=== PATIENT | female | born 1970 | race Caucasian/White ===

== ENCOUNTER → 2016-10-23 | Outpatient (CLI) | payer BC ==
[~2016-10-23] MED LIST: ATV5 PO; BUPR-79 PO; DEXL30CA5 PO; HYDR-3419 PO
--- NOTE | 2016-10-23 15:48 | MAMMOGRAPHY REPORT ---
BILATERAL DIGITAL SCREENING MAMMOGRAM TOMOSYNTHESIS WITH CAD: 10/23/2016 CLINICAL HISTORY: Routine screening. Patient has no complaints. TECHNIQUE: Breast tomosynthesis in addition to standard 2D mammography was performed. Current study was also evaluated with a Computer Aided Detection (CAD) system. COMPARISON: Comparison is made to exams dated: 10/08/2015 mammogram, 07/19/2013 mammogram, 4 mammogram, 05/03/2012 mammogram, and 04/10/2011 mammogram - [facility]. BREAST COMPOSITION: The tissue of both breasts is extremely dense, which lowers the sensitivity of mammography. FINDINGS: No suspicious masses, calcifications, or areas of architectural distortion are noted in e ither breast. There has been no significant interval change compared to prior exams. A biopsy marke r clip is again noted in the left medial breast. IMPRESSION: ACR BI-RADS CATEGORY 2: BENIGN There is no mammographic evidence of malignancy. A 1 year screening mammogram is recommended. The p atient will receive written notification of the results. Approximately 10% of breast cancers are not detected with mammography. A negative mammographic repor t should not delay biopsy if a clinically suggestive mass is present. Jessica Goetz M.D. ah/:10/23/2016 14:59:27 Commercial Drafter: Tracy CIFUENTES(Yanelis)(M), [facility] letter sent: Normal 1/2 BI-RADS Code: ACR BI-RADS Category 2: Benign
== END | disposition home or self-care (01) ==
LOC: C.MAMM 13:37
PROVIDERS: ATTEND Obstetrics & Gynecology
DX: Z12.31 Encounter for screening mammogram for malignant neoplasm of breast (principal)

== ENCOUNTER 2016-10-31 09:58 | Observation (INO) | payer BC ==
[~2016-10-31] VITALS: Ht 165.1 cm; Wt 67.4 kg
[~2016-10-31 09:58] MED LIST changes: -BUPR-79 PO; -HYDR-3419 PO
[2016-10-31] MEDS ORDERED: ONDANSETRON 8 MG/54 ML D5W IV STA (10:22)
[2016-10-31] MEDS ORDERED: SODIUM CHLORIDE 0.9% 1000ML 1,000 ML IV STA (10:22)
[2016-10-31] MEDS ORDERED: MoRPHine SULFATE 4 MG/ML 1 ML CARP\\VIAL IV STA (10:22)
[2016-10-31] MEDS ORDERED: MoRPHine SULFATE 4 MG/ML 1 ML CARP\\VIAL IV PRN (10:30)
[2016-10-31] MEDS ORDERED: OPTIRAY 320 IV PRN (10:30)
[2016-10-31] MEDS ORDERED: PROMETHAZINE HCL INJ 25 MG in SODIUM CHLORIDE 0.9% 50ML 50 ML IV STA (11:08)
[2016-10-31 11:10] LABS: URINE APPEARANCE CLEAR (CLEAR); URINE BILIRUBIN NEG (NEG); URINE COLOR YELLOW; URINE NITRITE NEG (NEG); URINE PH >= 9.0 (4.5-7.5); URINE SPECIFIC GRAVITY 1.021 (1.000-1.030); UROBILINOGEN NEG (NEG)
[2016-10-31 11:10] LABS: BASO % 0.1 %; BASO ABS # 0.01 K/uL (0-0.2); COMPLETE YES; EOS % 0.2 %; HEMATOCRIT 38.2 % (37-47); IG% 0.3 %; LYMPH % 12.1 %; LYMPH ABS # 1.18 K/uL (1.2-3.4); MEAN CELL VOLUME 92.3 fL (80-100); MEAN CORPUSCULAR HEMOGLOBIN 32.1 pg (25-34); MEAN CORPUSCULAR HGB CONC 34.8 g/dl (32-36); MEAN PLATELET VOLUME 10.5 fL (7.4-10.4); MONO % 3.3 %; PLATELET COUNT 241 K/uL (130-400); RED BLOOD COUNT 4.14 M/uL (4.2-5.4); WHITE BLOOD COUNT 9.79 K/uL (4.8-10.8)
[2016-10-31 11:11] LABS: MANUAL MICROSCOPIC REQUIRED? NO; REVIEW REQ? NO
[2016-10-31] MEDS ORDERED: PROMETHAZINE HCL INJ 25 MG/ML 1 ML VIAL ONE (11:11)
[2016-10-31 11:26] LABS: BLOOD UREA NITROGEN 13 mg/dl (7-18); CREATININE 0.88 mg/dl (0.60-1.20); GLUCOSE 121 mg/dl (70-99)
[2016-10-31 11:27] LABS: ALT/SGPT 20 U/L (12-78); BUN/CREATININE RATIO 14.3 (10-20); CALCIUM 8.8 mg/dl (8.5-10.1); CARBON DIOXIDE 24 mmol/L (21-32); CHLORIDE 105 mmol/L (98-107); POTASSIUM 3.7 mmol/L (3.5-5.1); SODIUM 140 mmol/L (136-145)
[2016-10-31 11:29] LABS: ALKALINE PHOSPHATASE 50 U/L (45-117); AST/SGOT 15 U/L (15-37)
--- NOTE | 2016-10-31 13:08 | DIAGNOSTIC IMAGING REPORT ---
CT ABD/PELVIS IV AND ORAL CONT CLINICAL HISTORY: Right lower quadrant abdominal pain COMPARISON STUDY: February 2006 TECHNIQUE: Following the IV administration of 93 mL of Optiray-320, CT scan of the abdomen and pelvis was performed from the lung bases to the proximal femurs. Images are reviewed in the axial, sagittal, and coronal planes. IV contrast was administered without complication. CT DOSE: 327.93 mGy.cm FINDINGS: Lower chest: There are minor dependent atelectatic changes. Liver: The contrast-enhanced liver is normal in size, contour, and attenuation. There is no intrahepatic biliary ductal dilatation. The hepatic veins and portal veins are patent. Gallbladder: Unremarkable. Spleen: Normal in size and attenuation. Pancreas: Unremarkable. Adrenal glands: Unremarkable. Kidneys: There is symmetric renal cortical enhancement. The kidneys are normal in size without hydronephrosis. Bowel: There are no transition zones indicate bowel obstruction. There is mild dilatation of the duodenum proximal to the aortic cross over. The distal appendix appears of normal caliber. The proximal appendix appears indistinct. There is mild infiltration of the periappendiceal fat. In the setting of right lower quadrant abdominal pain, the findings likely represent acute appendicitis, although an adjacent inflammatory process such as an omental infarct cannot be excluded. Surgical consultation is recommended. Peritoneum: There is trace free fluid in the pelvis. No free air is visualized Vasculature: The abdominal aorta is normal in course and caliber. Adenopathy: None. Pelvic viscera: There is a 6 cm bilobed right ovarian cyst versus 2 tangential right ovarian cysts Skeletal structures: There is bilateral L5 spondylolysis IMPRESSION: 1. 6 cm bilobed right ovarian cyst versus tangential right ovarian cysts 2. No evidence of bowel obstruction. No evidence of free air 3. Mild infiltrative changes surrounding the appendix. The distal appendix appears of normal caliber. The proximal appendix is somewhat indistinct. In the setting of right lower quadrant abdominal pain, the findings likely represent acute appendicitis, although they're not felt to be definitive of this diagnosis. An adjacent inflammatory process such as omental infarct could appear similar. Surgical consultation is recommended Electronically signed by: Stevie Castro M.D. 10/31/2016 1:06 PM Dictated Date/Time: 10/31/2016 12:47 PM
--- NOTE | 2016-10-31 14:47 | History and Physical ---
History & Physical Date & Time of Service: Oct 31, 2016 at 14:32 Chief Complaint: Abdominal Pain Primary Care Physician: Michell Guevara DO History of Present Illness Source: patient, spouse Nicholas Browning is a 46 years old female who presents with RLQ pain for 8 hours with nausea, no vomiting, pt griffin fever, one time diarrhea, pt had hysterectomy last year. Social History Smoking Status: Former Smoker Smokeless Tobacco Use: No Alcohol Use: occasionally Drug Use: none Multi-Drug Resistant Organisms History of MDRO: No Allergies Coded Allergies: No Known Allergies (Verified , 10/31/16) Home Medications Scheduled Dexlansoprazole (Dexilant), 1 CAP PO QAM Scheduled PRN Lorazepam (Lorazepam), 1 CAP PO HS PRN for Sleep Review of Systems Constitutional: No chills, No fatigue, No fever, No problem reported, No sweats , No weakness, No weight loss Eyes: No diplopia, No discharge, No eye pain, No problem reported, No redness, No worsening of vision ENT: No dental problems, No hearing loss, No nasal symptoms, No problem reported, No sore throat, No tinnitus, No trouble swallowing, No unusual epistaxis Respiratory: No cough, No dyspnea at rest, No dyspnea on exertion, No hemoptysis, No problem reported, No shortness of breath, No sputum, No wheezing Cardiovascular: No PND, No chest pain, No claudication, No edema, No orthopnea , No palpitations, No problem reported Abdomen: + diarrhea, + nausea, + pain Musculoskeletal: No calf pain, No joint pain, No muscle pain, No problem reported, No swelling Genitourinary - Female: No dysmenorrhea, No dysuria, No hematuria, No menorrhagia, No metrorrhagia, No , No problem reported, No rash, No urinary frequency, No urinary incontinence, No urinary retention, No urinary urgency, No vaginal bleeding, No vaginal discharge, No vaginal itching, No vulvodynia Neurologic: No balance problems, No memory loss, No numbness/tingling, No paralysis, No problem reported, No vertigo, No weakness Psychiatric: No anhedonism, No anxiety, No depression symptoms, No insomnia, No problem reported, No substance abuse Endocrine: No excessive thirst, No excessive urination, No fatigue, No problem reported Physical Exam Vital Signs Date Time Temp Pulse Resp B/P Pulse Ox O2 Delivery O2 Flow Rate FiO2 10/31/16 13:22 84 18 91/53 97 Room Air 10/31/16 11:23 68 16 108/74 99 Room Air 10/31/16 10:07 36.8 72 18 109/65 100 Room Air General Appearance: WD/WN, no apparent distress Head: normocephalic Eyes: normal inspection, PERRL ENT: normal ENT inspection, hearing grossly normal Neck: supple, no adenopathy, no JVD Respiratory/Chest: chest non-tender, lungs clear, normal breath sounds Cardiovascular: regular rate, rhythm, no edema, no gallop, no JVD Abdomen/GI: normal bowel sounds, non tender, soft, no organomegaly, no pulsatile mass Extremities/Musculoskelatal: normal inspection, no calf tenderness, normal capillary refill Neurologic/Psych: area intelligence technician II-XII nml as tested, no motor/sensory deficits Skin: normal color, warm/dry Diagnostics Laboratory Results Results Past 24 Hours Test 10/31/16 10:30 10/31/16 10:37 Range/Units White Blood Count 9.79 4.8-10.8 K/uL Red Blood Count 4.14 4.2-5.4 M/uL Hemoglobin 13.3 12.0-16.0 g/dL Hematocrit 38.2 37-47 % Mean Corpuscular Volume 92.3 80-100 fL Mean Corpuscular Hemoglobin 32.1 25-34 pg Mean Corpuscular Hemoglobin Concent 34.8 32-36 g/dl Platelet Count 241 130-400 K/uL Mean Platelet Volume 10.5 7.4-10.4 fL Neutrophils (%) (Auto) 84.0 % Lymphocytes (%) (Auto) 12.1 % Monocytes (%) (Auto) 3.3 % Eosinophils (%) (Auto) 0.2 % Basophils (%) (Auto) 0.1 % Neutrophils # (Auto) 8.23 1.4-6.5 K/uL Lymphocytes # (Auto) 1.18 1.2-3.4 K/uL Monocytes # (Auto) 0.32 0.11-0.59 K/uL Eosinophils # (Auto) 0.02 0-0.5 K/uL Basophils # (Auto) 0.01 0-0.2 K/uL RDW Standard Deviation 43.7 36.4-46.3 fL RDW Coefficient of Variation 13.0 11.5-14.5 % Immature Granulocyte % (Auto) 0.3 % Immature Granulocyte # (Auto) 0.03 0.00-0.02 K/uL Sodium Level 140 136-145 mmol/L Potassium Level 3.7 3.5-5.1 mmol/L Chloride Level 105 98-107 mmol/L Carbon Dioxide Level 24 21-32 mmol/L Anion Gap 11.0 3-11 mmol/L Blood Urea Nitrogen 13 7-18 mg/dl Creatinine 0.88 0.60-1.20 mg/dl Est Creatinine Clear Calc Drug Dose 70.4 ml/min Estimated GFR () 90.0 Estimated GFR (Non- 77.7 BUN/Creatinine Ratio 14.3 10-20 Random Glucose 121 70-99 mg/dl Calcium Level 8.8 8.5-10.1 mg/dl Total Bilirubin 0.3 0.2-1 mg/dl Direct Bilirubin < 0.1 0-0.2 mg/dl Aspartate Amino Transf (AST/SGOT) 15 15-37 U/L Alanine Aminotransferase (ALT/SGPT) 20 12-78 U/L Alkaline Phosphatase 50 45-117 U/L Total Protein 7.1 6.4-8.2 gm/dl Albumin 3.9 3.4-5.0 gm/dl Lipase 142 73-393 U/L Urine Color YELLOW Urine Appearance CLEAR CLEAR Urine pH >= 9.0 4.5-7.5 Urine Specific Holcomb 1.021 1.000-1.030 Urine Protein NEG NEG Urine Glucose (UA) NEG NEG Urine Ketones NEG NEG Urine Occult Blood NEG NEG Urine Nitrite NEG NEG Urine Bilirubin NEG NEG Urine Urobilinogen NEG NEG Urine Leukocyte Esterase NEG NEG Diagnostic Radiology CT scan-IMPRESSION: 1. 6 cm bilobed right ovarian cyst versus tangential right ovarian cysts 2. No evidence of bowel obstruction. No evidence of free air 3. Mild infiltrative changes surrounding the appendix. The distal appendix appears of normal caliber. The proximal appendix is somewhat indistinct. In the setting of right lower quadrant abdominal pain, the findings likely represent acute appendicitis, although they're not felt to be definitive of this diagnosis. An adjacent inflammatory process such as omental infarct could appear similar. Surgical consultation is recommended Impression Assessment and Plan IMP abdominal pain, possible caused by ovary cyst or early acute appendicitis, Plan: I recommend to consult OBG-YN for right ovary cyst ( 6cm ) if the abdominal pain is not relate to ovary cyst, I recommend to admit to hospital overnight, repeat labs in AM, re-evaluate in AM, if any signs acute appendicitis, I will do lap appy. pt and her agree with the plan. IV fluid, iv antibiotic, Zosyn.Will F/U. D/W ER attending who agrees b with the plan,
[2016-10-31] MEDS ORDERED: PIPERACILLIN/TAZOBACTAM 3.375 GM/100ML D5W IV STA (14:55)
[2016-10-31] MEDS ORDERED: HYDROmorphone INJ 1 MG/ML SYR IV PRN (16:30)
[2016-10-31] MEDS ORDERED: ONDANSETRON INJ 2 MG/ML 2 ML VIAL IV PRN (16:30)
--- NOTE | 2016-10-31 16:34 | DIAGNOSTIC IMAGING REPORT ---
EXAMINATION: PELVIC ULTRASOUND CLINICAL HISTORY: Right lower quadrant abdominal pain. Right ovarian cyst. COMPARISON STUDY: CT scan dated 10/31/2016 FINDINGS: The uterus is surgically absent The right ovary measured 4.7 x 3 x 1.6 cm. There is a 3.1 cm right ovarian cyst/follicle. There are no septations or mural nodules within this. There is a second 2.5 cm cyst with internal debris, likely representing a hemorrhagic cyst. The cyst are 2 tangential, and correlate with the CT findings.. The left ovary measured 12 x 17 x 9 mm. There is no ultrasonographic evidence of ovarian torsion. It should be noted that ovarian torsion can be present with normal Doppler ultrasonographic findings. There is a small amount of free fluid present within both adnexal regions. IMPRESSION: 1. Surgically absent uterus 2. Tangential right ovarian cysts measuring 31 mm and 25 mm respectively. The 25 mm cyst demonstrates internal debris, likely hemorrhagic. 3. Small amount of free fluid within both adnexal regions 4. No ultrasonographic evidence of ovarian torsion. Electronically signed by: Stevie Castro M.D. 10/31/2016 4:32 PM Dictated Date/Time: 10/31/2016 4:29 PM
--- NOTE | 2016-10-31 17:05 | EMERGENCY ROOM VISIT NOTE ---
History First contact with patient: 10:11 Chief Complaint: ABDOMINAL PAIN Stated Complaint: ABDOMINAL PAIN Nursing Triage Summary: Nausea and abd pain, started this a.m. History of Present Illness The patient is a 46 year old female who presents to the Emergency Room with complaints of right lower quadrant abdominal pain and nausea that started early this morning. The patient reports that the pain awakened her. She reports that the pain is mostly constant, but initially was waxing and waning. She denies any fevers or chills or vomiting. The patient reports that she did have one episode of diarrhea this morning upon awakening. The patient denies any pain radiating into the left side of the abdomen or back. It does radiate into the right hip. The pain is worsened with bending over and ambulation. The patient is status post hysterectomy and bilateral inguinal herniorrhaphy as a child. She denies any known history of kidney stones, and denies history of appendectomy. She rates her discomfort an 8 out of 10. Review of Systems HEENT: Denies dizziness, visual problems, hearing loss, tinnitus. Denies difficulty swallowing or oral lesions. PULMONARY: Denies cough, shortness of breath, sputum production or hemoptysis. CARDIOVASCULAR: Denies chest pain, palpitations, dyspnea on exertion, orthopnea or peripheral edema. GASTROINTESTINAL: See history of present illness GENITOURINARY: Denies dysuria, frequency, urgency or nocturia. NEUROLOGIC: Denies history of epilepsy, CVA, TIA or chronic headaches. MUSCULOSKELETAL: Denies history of joint tenderness/swelling. SKIN: Denies rashes or lesions. PSYCHIATRIC: Denies history of depression or mental illness. ENDOCRINE: Denies history of diabetes or thyroid disorders. Past Medical/Surgical History Medical Problems: (1) Abdominal pain (2) Anxiety (3) GERD (gastroesophageal reflux disease) (4) Hemorrhoids Nos (5) Uterine Leiomyoma Nos Surgical Problems: (1) History of hysterectomy Family History Unremarkable Social History Smoking Status: Former Smoker Alcohol Use: occasionally Marital Status: Housing Status: lives with family Occupation Status: employed Current/Historical Medications Scheduled Dexlansoprazole (Dexilant), 1 CAP PO QAM Scheduled PRN Lorazepam (Lorazepam), 1 CAP PO HS PRN for Sleep Allergies Coded Allergies: No Known Allergies (Verified , 10/31/16) Physical Exam Vital Signs Date Time Temp Pulse Resp B/P Pulse Ox O2 Delivery O2 Flow Rate FiO2 10/31/16 16:37 61 16 101/53 97 Room Air 10/31/16 14:46 61 16 90/57 96 Room Air 10/31/16 13:22 84 18 91/53 97 Room Air 10/31/16 11:23 68 16 108/74 99 Room Air 10/31/16 10:07 36.8 72 18 109/65 100 Room Air Physical Exam CONSTITUTIONAL: Healthy and well nourished. Alert and oriented X 3 with positive affect. Patient appears in moderate discomfort from pain. HEENT: Normocephalic, atraumatic. Pupils equal, round and reactive. No scleral icterus or conjunctival pallor. LYMPHATICS: No cervical adenopathy. OROPHARYNX: Mucous membranes are dry. No posterior pharyngeal erythema or tonsillar hypertrophy. NECK: Full active range of motion without discomfort. RESPIRATORY: Clear to auscultation bilaterally with no wheezing, crackles, rhonchi or stridor. CARDIOVASCULAR: Regular rate and rhythm with no murmurs, rubs or gallops. GASTROINTESTINAL: Bowel sounds present in all quadrants. Patient has notable McBurney's point tenderness. Positive Rovsing sign. Positive heel tap. Negative psoas/obturator sign. Negative CVA tenderness. No rigidity, guarding or rebound. MUSCULOSKELETAL: Full range of motion of all joints without discomfort. INTEGUMENTARY: No rash or other significant dermatologic conditions noted. HEMATOLOGIC: No ecchymosis or petechiae noted. NEUROLOGIC: No focal neurologic deficits noted. Medical Decision & Procedures ER Provider Diagnostic Interpretation: Enhanced CT of the abdomen and pelvis shows right ovarian cysts and a possible early appendicitis. Radiologist report is as follows: CT ABD/PELVIS IV AND ORAL CONT CLINICAL HISTORY: Right lower quadrant abdominal pain COMPARISON STUDY: February 2006 TECHNIQUE: Following the IV administration of 93 mL of Optiray-320, CT scan of the abdomen and pelvis was performed from the lung bases to the proximal femurs. Images are reviewed in the axial, sagittal, and coronal planes. IV contrast was administered without complication. CT DOSE: 327.93 mGy.cm FINDINGS: Lower chest: There are minor dependent atelectatic changes. Liver: The contrast-enhanced liver is normal in size, contour, and attenuation. There is no intrahepatic biliary ductal dilatation. The hepatic veins and portal veins are patent. Gallbladder: Unremarkable. Spleen: Normal in size and attenuation. Pancreas: Unremarkable. Adrenal glands: Unremarkable. Kidneys: There is symmetric renal cortical enhancement. The kidneys are normal in size without hydronephrosis. Bowel: There are no transition zones indicate bowel obstruction. There is mild dilatation of the duodenum proximal to the aortic cross over. The distal appendix appears of normal caliber. The proximal appendix appears indistinct. There is mild infiltration of the periappendiceal fat. In the setting of right lower quadrant abdominal pain, the findings likely represent acute appendicitis, although an adjacent inflammatory process such as an omental infarct cannot be excluded. Surgical consultation is recommended. Peritoneum: There is trace free fluid in the pelvis. No free air is visualized Vasculature: The abdominal aorta is normal in course and caliber. Adenopathy: None. Pelvic viscera: There is a 6 cm bilobed right ovarian cyst versus 2 tangential right ovarian cysts Skeletal structures: There is bilateral L5 spondylolysis IMPRESSION: 1. 6 cm bilobed right ovarian cyst versus tangential right ovarian cysts 2. No evidence of bowel obstruction. No evidence of free air 3. Mild infiltrative changes surrounding the appendix. The distal appendix appears of normal caliber. The proximal appendix is somewhat indistinct. In the setting of right lower quadrant abdominal pain, the findings likely represent acute appendicitis, although they're not felt to be definitive of this diagnosis. An adjacent inflammatory process such as omental infarct could appear similar. Surgical consultation is recommended. Pelvic ultrasound shows the following: EXAMINATION: PELVIC ULTRASOUND CLINICAL HISTORY: Right lower quadrant abdominal pain. Right ovarian cyst. COMPARISON STUDY: CT scan dated 10/31/2016 FINDINGS: The uterus is surgically absent The right ovary measured 4.7 x 3 x 1.6 cm. There is a 3.1 cm right ovarian cyst/follicle. There are no septations or mural nodules within this. There is a second 2.5 cm cyst with internal debris, likely representing a hemorrhagic cyst. The cyst are 2 tangential, and correlate with the CT findings.. The left ovary measured 12 x 17 x 9 mm. There is no ultrasonographic evidence of ovarian torsion. It should be noted that ovarian torsion can be present with normal Doppler ultrasonographic findings. There is a small amount of free fluid present within both adnexal regions. IMPRESSION: 1. Surgically absent uterus 2. Tangential right ovarian cysts measuring 31 mm and 25 mm respectively. The 25 mm cyst demonstrates internal debris, likely hemorrhagic. 3. Small amount of free fluid within both adnexal regions 4. No ultrasonographic evidence of ovarian torsion. Laboratory Results 10/31/16 10:30 Red Blood Count 4.14, Mean Corpuscular Volume 92.3, Mean Corpuscular Hemoglobin 32.1, Mean Corpuscular Hemoglobin Concent 34.8, Mean Platelet Volume 10.5, Neutrophils (%) (Auto) 84.0, Lymphocytes (%) (Auto) 12.1, Monocytes (%) (Auto) 3.3, Eosinophils (%) (Auto) 0.2, Basophils (%) (Auto) 0.1, Neutrophils # (Auto) 8.23, Lymphocytes # (Auto) 1.18, Monocytes # (Auto) 0.32, Eosinophils # (Auto) 0.02, Basophils # (Auto) 0.01 10/31/16 10:30 Test 10/31/16 10:30 10/31/16 10:37 White Blood Count 9.79 K/uL (4.8-10.8) Red Blood Count 4.14 M/uL (4.2-5.4) Hemoglobin 13.3 g/dL (12.0-16.0) Hematocrit 38.2 % (37-47) Mean Corpuscular Volume 92.3 fL (80-100) Mean Corpuscular Hemoglobin 32.1 pg (25-34) Mean Corpuscular Hemoglobin Concent 34.8 g/dl (32-36) Platelet Count 241 K/uL (130-400) Mean Platelet Volume 10.5 fL (7.4-10.4) Neutrophils (%) (Auto) 84.0 % Lymphocytes (%) (Auto) 12.1 % Monocytes (%) (Auto) 3.3 % Eosinophils (%) (Auto) 0.2 % Basophils (%) (Auto) 0.1 % Neutrophils # (Auto) 8.23 K/uL (1.4-6.5) Lymphocytes # (Auto) 1.18 K/uL (1.2-3.4) Monocytes # (Auto) 0.32 K/uL (0.11-0.59) Eosinophils # (Auto) 0.02 K/uL (0-0.5) Basophils # (Auto) 0.01 K/uL (0-0.2) RDW Standard Deviation 43.7 fL (36.4-46.3) RDW Coefficient of Variation 13.0 % (11.5-14.5) Immature Granulocyte % (Auto) 0.3 % Immature Granulocyte # (Auto) 0.03 K/uL (0.00-0.02) Anion Gap 11.0 mmol/L (3-11) Est Creatinine Clear Calc Drug Dose 70.4 ml/min Estimated GFR () 90.0 Estimated GFR (Non- 77.7 BUN/Creatinine Ratio 14.3 (10-20) Calcium Level 8.8 mg/dl (8.5-10.1) Total Bilirubin 0.3 mg/dl (0.2-1) Direct Bilirubin < 0.1 mg/dl (0-0.2) Aspartate Amino Transf (AST/SGOT) 15 U/L (15-37) Alanine Aminotransferase (ALT/SGPT) 20 U/L (12-78) Alkaline Phosphatase 50 U/L (45-117) Total Protein 7.1 gm/dl (6.4-8.2) Albumin 3.9 gm/dl (3.4-5.0) Lipase 142 U/L (73-393) Urine Color YELLOW Urine Appearance CLEAR (CLEAR) Urine pH >= 9.0 (4.5-7.5) Urine Specific [place] 1.021 (1.000-1.030) Urine Protein NEG (NEG) Urine Glucose (UA) NEG (NEG) Urine Ketones NEG (NEG) Urine Occult Blood NEG (NEG) Urine Nitrite NEG (NEG) Urine Bilirubin NEG (NEG) Urine Urobilinogen NEG (NEG) Urine Leukocyte Esterase NEG (NEG) The above labs were reviewed without any significant abnormalities. Urinalysis is also normal. Medications Administered Medications (Trade) Dose Ordered Sig/Ayush Route Start Time Stop Time Status Last Admin Dose Admin Morphine Sulfate 4 mg 4 mg Q30M PRN IV 10/31/16 10:30 11/14/16 10:29 10/31/16 11:17 4 MG Sodium Chloride (Nss 1000ml) 1,000 ml @ 999 mls/hr Q1H1M STAT IV 10/31/16 10:22 10/31/16 11:22 DC 10/31/16 10:42 999 MLS/HR Ondansetron HCl (Zofran 8mg Iv) 8 mg NOW STAT IV 10/31/16 10:22 10/31/16 10:25 DC 10/31/16 10:42 8 MG Morphine Sulfate 4 mg 4 mg NOW STAT IV 10/31/16 10:22 10/31/16 10:25 DC 10/31/16 10:43 4 MG Promethazine HCl/ Sodium Chloride (Phenergan Inj/ Nss 50ml) 51 ml @ 204 mls/hr NOW STAT IV 10/31/16 11:08 10/31/16 11:22 DC 10/31/16 11:19 204 MLS/HR Piperacillin Sod/ Tazobactam Sod (Zosyn Iv) 3.375 gm NOW STAT IV 10/31/16 14:55 10/31/16 14:57 DC 10/31/16 16:35 3.375 GM Procedure 1. IV hydration: The patient received a liter normal saline bolus 2. IV medications: The patient initially was administered morphine 4 mg and Zofran 8 mg IVP. With persistent pain and nausea upon recheck approximately 25 minutes after the initial medication administration, she was administered an additional morphine 4 mg and Phenergan 25 mg IVP. ED Course Patient history and physical exam were performed. Nurse's notes were reviewed. Vital signs were reviewed and were normal. IV access was established, and labs were drawn. The patient was hydrated with normal saline, and received IV medications as discussed in the previous Procedure section. Labs were reviewed and were normal. Enhanced CT of the abdomen and pelvis showed a proximal appendiceal swelling and right ovarian cysts. Further details are discussed in the radiologist report. At this point, the case was further discussed with Dr. Doyle, ED attending physician, who recommended surgical consultation. The patient was seen and examined by Dr. Maldonado who stated that he would bring the patient in for overnight observation. He did request that I speak with the WASTEWATER SUPERVISOR on-call as well. I therefore spoke with Dr. Bird who requested a pelvic ultrasound. This was performed for further evaluation of the ovarian cysts, one of which appears to be hemorrhagic. Dr. Bird does not suspect gynecological etiology for this pain, but will evaluate the patient later today. I reviewed this discussion with Dr. Maldonado as well. Medical Decision Patient presents to the emergency department with rather abrupt onset of right lower quadrant abdominal pain. Based on today's workup, I highly suspect an early appendicitis. The patient currently is afebrile and has no leukocytosis to suggest infection or ovarian torsion. Other differentials considered included diverticulitis, ischemic gut, bowel obstruction or mesenteric adenitis. The patient is status post hysterectomy. Laboratory studies also are not suggestive of pancreatitis, hepatitis or UTI. Impression Primary Impression: Appendicitis Additional Impression: Complex cyst of right ovary Departure Information Referrals Michell Guevara DO (PCP) Patient Instructions My [facility] Problem Qualifiers Primary Impression: Appendicitis Appendicitis type: acute appendicitis Acute appendicitis type: unspecified acute appendicitis type Qualified Codes: K35.80 - Unspecified acute appendicitis
[2016-10-31 17:27] VITALS: Ht 165.1 cm; Wt 67.4 kg
[2016-10-31] MEDS ORDERED: IV FLUIDS COMPLETED PRN (17:30)
[2016-10-31 18:23] VITALS: BP 98/64; PULSE 75; TEMP 37.1; O2SAT 97
[2016-10-31] MEDS ORDERED: PIPERACILL/TAZOBAC CONSULT ACTIVE PRN (19:15)
[2016-10-31] MEDS: D5W AND 1/2NSS + 20MEQ KCL 1,000 ML IV SCH (19:19)
[2016-10-31 20:46] LABS: PREG INTERNAL NEGATIVE QC NEG CLEAR BACKGROUND; PREG INTERNAL POSITIVE QC POS CONTROL LINE
[2016-10-31] MEDS: PIPERACILL/TAZOBAC IV 3.375 GM in DEXTROSE 5% 100ML 100 ML IV SCH (21:24)
[2016-10-31 23:15] VITALS: BP 93/53; PULSE 60; TEMP 36.7; O2SAT 98
[2016-11-01] VITALS (7 sets, daily range): BP systolic 91–109; BP diastolic 54–68; PULSE 57–68; TEMP 36.6–37.1; O2SAT 95–98
[2016-11-01] MEDS: PIPERACILL/TAZOBAC IV 3.375 GM in DEXTROSE 5% 100ML 100 ML IV SCH ×3 (05:23→21:38)
[2016-11-01] MEDS: D5W AND 1/2NSS + 20MEQ KCL 1,000 ML IV SCH ×2 (05:23→15:22)
[2016-11-01 05:55] LABS: BASO % 0.2 %; BASO ABS # 0.01 K/uL (0-0.2); COMPLETE YES; IG% 0.2 %; LYMPH % 38.1 %; LYMPH ABS # 2.12 K/uL (1.2-3.4); MEAN CELL VOLUME 94.6 fL (80-100); MEAN CORPUSCULAR HEMOGLOBIN 30.8 pg (25-34); MEAN CORPUSCULAR HGB CONC 32.6 g/dl (32-36); MEAN PLATELET VOLUME 10.5 fL (7.4-10.4); MONO % 8.6 %; NEUT % 50.9 %; PLATELET COUNT 196 K/uL (130-400); WHITE BLOOD COUNT 5.57 K/uL (4.8-10.8)
[2016-11-01 06:29] LABS: ALB/GLOB RATIO 1.1 (0.9-2); CALCIUM 8.3 mg/dl (8.5-10.1); POTASSIUM 3.8 mmol/L (3.5-5.1)
--- NOTE | 2016-11-01 07:36 | Surgery Progress Note ---
Surgery Progress Note Date of Service Nov 01, 2016. Subjective pt is still have RLQ pain, pt denies fever, no Nausea, no vomiting, pt said her sister had same RLQ pain in the past, pt's sister had perforated appendix. pt wants to do appendectomy today. Objective Vital Signs: Date Time Temp Pulse Resp B/P Pulse Ox O2 Delivery O2 Flow Rate FiO2 10/31/16 23:30 Room Air 10/31/16 23:15 36.7 60 16 93/53 98 Room Air 10/31/16 18:23 37.1 75 20 98/64 97 Room Air 10/31/16 18:15 Room Air 10/31/16 18:07 61 16 101/53 97 10/31/16 17:27 Room Air 10/31/16 16:37 61 16 101/53 97 Room Air 10/31/16 14:46 61 16 90/57 96 Room Air 10/31/16 13:22 84 18 91/53 97 Room Air 10/31/16 11:23 68 16 108/74 99 Room Air 10/31/16 10:07 36.8 72 18 109/65 100 Room Air General Appearance: WD/WN, + mild distress Head: normocephalic Neck: supple Respiratory/Chest: chest non-tender, lungs clear, normal breath sounds, no respiratory distress Cardiovascular: regular rate, rhythm, no edema, no gallop, no JVD Abdomen: normal bowel sounds, non distended, + tenderness (tenderness at RLQ, rebound pain, ) Extremities: normal range of motion, non-tender, normal inspection Laboratory Results: Results Past 24 Hours Test 10/31/16 10:30 10/31/16 10:37 10/31/16 20:20 11/01/16 05:35 Range/Units White Blood Count 9.79 5.57 4.8-10.8 K/uL Red Blood Count 4.14 3.70 4.2-5.4 M/uL Hemoglobin 13.3 11.4 12.0-16.0 g/dL Hematocrit 38.2 35.0 37-47 % Mean Corpuscular Volume 92.3 94.6 80-100 fL Mean Corpuscular Hemoglobin 32.1 30.8 25-34 pg Mean Corpuscular Hemoglobin Concent 34.8 32.6 32-36 g/dl Platelet Count 241 196 130-400 K/uL Mean Platelet Volume 10.5 10.5 7.4-10.4 fL Neutrophils (%) (Auto) 84.0 50.9 % Lymphocytes (%) (Auto) 12.1 38.1 % Monocytes (%) (Auto) 3.3 8.6 % Eosinophils (%) (Auto) 0.2 2.0 % Basophils (%) (Auto) 0.1 0.2 % Neutrophils # (Auto) 8.23 2.84 1.4-6.5 K/uL Lymphocytes # (Auto) 1.18 2.12 1.2-3.4 K/uL Monocytes # (Auto) 0.32 0.48 0.11-0.59 K/uL Eosinophils # (Auto) 0.02 0.11 0-0.5 K/uL Basophils # (Auto) 0.01 0.01 0-0.2 K/uL RDW Standard Deviation 43.7 46.0 36.4-46.3 fL RDW Coefficient of Variation 13.0 13.2 11.5-14.5 % Immature Granulocyte % (Auto) 0.3 0.2 % Immature Granulocyte # (Auto) 0.03 0.01 0.00-0.02 K/uL Sodium Level 140 145 136-145 mmol/L Potassium Level 3.7 3.8 3.5-5.1 mmol/L Chloride Level 105 110 98-107 mmol/L Carbon Dioxide Level 24 29 21-32 mmol/L Anion Gap 11.0 6.0 3-11 mmol/L Blood Urea Nitrogen 13 7 7-18 mg/dl Creatinine 0.88 1.00 0.60-1.20 mg/dl Est Creatinine Clear Calc Drug Dose 70.4 61.9 ml/min Estimated GFR () 90.0 77.2 Estimated GFR (Non- 77.7 66.6 BUN/Creatinine Ratio 14.3 7.0 10-20 Random Glucose 121 86 70-99 mg/dl Calcium Level 8.8 8.3 8.5-10.1 mg/dl Total Bilirubin 0.3 0.4 0.2-1 mg/dl Direct Bilirubin < 0.1 0-0.2 mg/dl Aspartate Amino Transf (AST/SGOT) 15 13 15-37 U/L Alanine Aminotransferase (ALT/SGPT) 20 15 12-78 U/L Alkaline Phosphatase 50 38 45-117 U/L Total Protein 7.1 5.7 6.4-8.2 gm/dl Albumin 3.9 3.0 3.4-5.0 gm/dl Lipase 142 73-393 U/L Urine Color YELLOW Urine Appearance CLEAR CLEAR Urine pH >= 9.0 4.5-7.5 Urine Specific [place] 1.021 1.000-1.030 Urine Protein NEG NEG Urine Glucose (UA) NEG NEG Urine Ketones NEG NEG Urine Occult Blood NEG NEG Urine Nitrite NEG NEG Urine Bilirubin NEG NEG Urine Urobilinogen NEG NEG Urine Leukocyte Esterase NEG NEG Urine Test NEG NEG Globulin 2.7 2.5-4.0 gm/dl Albumin/Globulin Ratio 1.1 0.9-2 Assessment & Plan IMP RLQ pain, possible early appendicitis or ovary cyst, pt wants to do appendectomy, pt will have laparoscopic appendectomy possible open or remove right ovary cyst or ovary soon, D/W benefits, risks and alternatives of procedre, nataly risks- infection, bleeding, injury bowel, abscess , incisional hernia, , pt understood, she agrees with the plan, I also call risk control specialist OBG-YN doctor Cameron Garcia who will do intra-operative consult, he will decide to remove right ovary cyst or ovary, I informed pt about this plan, pt agrees with the plan.
[2016-11-01] MEDS ORDERED: EpHEDrine SULFATE INJ 50 MG/ML AMP IV PRN (12:00)
[2016-11-01] MEDS ORDERED: FENTANYL CITRATE INJ 50 MCG/1 ML 2 ML VIAL IV PRN (12:00)
[2016-11-01] MEDS ORDERED: ATROPINE SULFATE 0.1 MG/ML 5ML SYR IV PRN (12:00)
[2016-11-01] MEDS ORDERED: ONDANSETRON INJ 2 MG/ML 2 ML VIAL IV PRN (12:00)
[2016-11-01] MEDS ORDERED: HYDROmorphone INJ 1 MG/ML SYR IV PRN (12:00)
[2016-11-01] MEDS ORDERED: FENTANYL CITRATE INJ 50 MCG/1 ML 2 ML VIAL ONE ×3 (12:01→13:48)
[2016-11-01] MEDS ORDERED: MIDAZOLAM HCL 1 MG/ML 2ML VIAL ONE (12:01)
[2016-11-01] MEDS ORDERED: DEXAMETHASONE SOD INJ 4 MG/ML VIAL ONE (12:49)
[2016-11-01] MEDS ORDERED: ONDANSETRON INJ 2 MG/ML 2 ML VIAL ONE (12:49)
[2016-11-01] MEDS ORDERED: NEOSTIGMINE METHYLSULFATE 5 MG/5 ML SYR ONE (12:49)
[2016-11-01] MEDS ORDERED: GLYCOPYRROLATE INJ 0.2 MG/ML VIAL ONE (12:49)
[2016-11-01] MEDS ORDERED: SUCCINYLCHOLINE 100MG/5ML SYR IV ONE (12:49)
[2016-11-01] MEDS ORDERED: LIDOCAINE HCL 2% 2 ML VIAL (20MG/ML) ONE (12:49)
[2016-11-01] MEDS ORDERED: PROPOFOL IV EMULSION 10 MG/ML 20 ML VIAL IV ONE (12:49)
[2016-11-01] MEDS ORDERED: ROCURONIUM BROMIDE 10 MG/ML 5 ML VIAL ONE (12:49)
--- NOTE | 2016-11-01 13:51 | [facility] Post Operative Brief Note ---
Immediate Operative Summary Operative Date Nov 01, 2016. Pre-Operative Diagnosis abdominal pain, Post-Operative Diagnosis reputured right ovary cyst, Procedure(s) Performed laparoscopic appendectomy, right ovary cyst resection and oophrectomy Surgeon Ambreen Wilde, Cameron Zarate Grain Shipper Surgeon(s) Cameron Zarate Estimated Blood Loss 10 ml Findings reputured right ovary cyst, normal finding of appendix Fluids (cc crystalloids) 800ml Specimens appendix, right ovary and cyst Drains none Anesthesia General Complication(s) None Disposition Surgical ICU
--- NOTE | 2016-11-01 13:54 | OPERATIVE REPORT ---
DATE OF ADMISSION: 11/01/2016 PREOPERATIVE DIAGNOSIS: Right hemorrhagic ovarian cyst. POSTOPERATIVE DIAGNOSIS: Same. PROCEDURE: Operative laparoscopy with right salpingo-oophorectomy. SURGEON: Dr. Garcia. TECHNICAL MANAGER [employer]MICAL PLANT: Dr. Maldonado. ANESTHESIA: General. ESTIMATED BLOOD LOSS: None. CLINICAL HISTORY: The patient is a 46-year-old female who presented with right lower quadrant pain. The patient was an intraoperative consult by Dr. Maldonado, general surgery who was performing an appendectomy due to pain. It was noted that the patient had a possible cyst on the ovary. After Dr. Maldonado removed the appendix, attention was then directed to the pelvis. A probe was then inserted and the bowels were removed superiorly, the right ovary was noted to contain a hemorrhagic ovarian cyst approximately 6 cm, attached to the tube. A grasper was then used to stabilize the ovary and tube and then an EndoGIA articulating stapling device was placed in the large port removing the ovary and tube from the pedicle. The pedicle was found to be dry. The EndoCatch bag was then placed in the umbilical port and then the specimen was placed in the bag and then removed through the port intact. Specimen will be submitted as a separate specimen. The pedicle was identified after the procedure and there was no bleeding noted from the pedicle. Remainder of the procedure will be dictated by Dr. Maldonado. The EBL is none and the patient is in stable condition.
[2016-11-01] MEDS ORDERED: HYDROmorphone INJ 0.5 MG/0.5 ML SYR ONE (14:16)
[2016-11-01] MEDS ORDERED: KETOROLAC TROMETHAMINE 30 MG/ML VIAL ONE (14:29)
[2016-11-01] MEDS ORDERED: NURSING VERBAL MED ORDER ONE ×2 (14:45→19:15)
[2016-11-01] MEDS: HYDROmorphone INJ 1 MG/ML SYR IV PRN ×2 (18:32→23:16)
--- NOTE | 2016-11-01 18:39 | Anesthesiology Progress Note ---
Anesthesia Post Op Note Date & Time Nov 01, 2016 at 18:39 Vital Signs Pain Intensity: 5.0 Vital Signs Past 12 Hours Date Time Temp Pulse Resp B/P Pulse Ox O2 Delivery O2 Flow Rate FiO2 11/01/16 18:30 36.7 68 16 95/54 97 Room Air 11/01/16 17:19 36.9 58 16 91/58 95 Room Air 11/01/16 16:19 37.1 57 16 103/66 95 Room Air 11/01/16 15:49 36.8 16 97/60 97 Room Air 11/01/16 15:15 98 Room Air 11/01/16 15:15 36.8 61 16 109/68 98 Room Air 11/01/16 15:15 Room Air 11/01/16 15:00 37.5 50 18 122/68 94 Room Air 11/01/16 14:50 37.5 56 18 124/71 99 Room Air 11/01/16 14:40 37.5 54 18 127/76 96 Room Air 11/01/16 14:30 48 18 142/80 97 Room Air 11/01/16 14:20 60 18 149/81 96 Room Air 11/01/16 14:10 78 18 138/79 100 Room Air 11/01/16 14:00 46 14 133/77 100 Mask 10 11/01/16 13:50 48 14 144/83 100 Mask 10 11/01/16 13:43 36.9 52 14 112/77 100 Mask 10 11/01/16 07:35 Room Air 11/01/16 07:22 36.6 61 18 98/66 96 Room Air Notes Mental Status: alert / awake / arousable, participated in evaluation Pt Amnestic to Procedure: Yes Nausea / Vomiting: adequately controlled Pain: adequately controlled Airway Patency, RR, SpO2: stable & adequate BP & HR: stable & adequate Hydration State: stable & adequate Anesthetic Complications: no major complications apparent
[2016-11-01] MEDS ORDERED: ORM MISCELLANEOUS MED TOP ONE (19:02)
[2016-11-01] MEDS ORDERED: BUPIVACAINE 0.5 % 5 MG/1 ML MPF 30ML VIAL INJ ONE (19:02)
[2016-11-01] MEDS: KETOROLAC TROMETHAMINE 15 MG/ML VIAL IV. PRN (19:26)
--- NOTE | 2016-11-01 23:37 | OPERATIVE REPORT ---
DATE OF OPERATION: 11/01/2016 PREOPERATIVE DIAGNOSES: Acute abdominal pain, possible early acute appendicitis, ruptured right ovarian cyst. POSTOPERATIVE DIAGNOSIS: Ruptured ovarian cyst. PROCEDURES: Laparoscopic appendectomy, laparoscopic oophorectomy, and resection of ovarian cyst. SURGEON: Ambreen Maldonado MD URBAN REDEVELOPMENT SPECIALIST: Cameron Garcia MD ANESTHESIA: General. ESTIMATED BLOOD LOSS: About 10 mL. FINDING: Ruptured right ovarian cyst with bleeding. Normal finding on the appendix. IV FLUIDS: 800 mL. DRAINS: No drainage. URINE OUTPUT: 400 mL. COMPLICATIONS: None. INDICATIONS FOR THE PROCEDURE: This is a 46-year-old female who presented to the ED with 1 day history of right lower quadrant pain. The patient had a CT scan showing possible early acute appendicitis, possible ruptured right ovarian cyst, and patient required to do diagnostic laparoscopy. The patient wanted to remove appendix. Given normal finding on the appendix, we decided to take patient to the OR to do diagnostic laparoscopy, appendectomy, possible resection of right ovary and the cyst. I did talk to patient about the benefit, risk and alternative of procedure. I indicated the risks may include but not limited such as bleeding, infection, abscess, even normal finding on the appendix still do the appendectomy, incisional hernia, injury to bowel, and even . The patient understands. She signed informed consent. I answered all questions. She agreed to proceed with procedure. DETAILS OF PROCEDURE: We brought patient to the OR, put the patient on the supine position. The patient received SCD on bilateral legs to prevent DVT. Also, patient received 2 grams Ancef IV for prophylactic antibiotic. The patient received general anesthesia without difficulty. The abdomen was prepped and draped in routine sterile fashion. After time out, I made a small incision just above umbilicus, opened fascia, opened peritoneum under direct vision. I put a Deepti trocar in, connected to CO2 to create a pneumoperitoneum. Flow rate is 6 liter per minute. Pressure not more than 14 mmHg. Once we got a nice pneumoperitoneum, I put another 5 mm trocar on the right upper quadrant, another 5 mm trocar on the left side lower quadrant. Then, I put a grasper in, put a 10 mm camera in to look around the abdomen, shows normal finding on the small bowel, large bowel, stomach, and liver. However, patient had ruptured right ovarian cyst. There was some free blood on the pelvic area. The appendix has normal finding. At this moment, we decided to take out the appendix. I made a window on the base of the appendix and passed a 45 mm Endo-ENA stapler transecting the base of the appendix. I used a harmonic to take down the appendix and rechecked, no active bleeding, no leak, and Dr. Garcia who did the right side ovarian and ovarian cyst resection, he will dictate his OR note separate from this note, and once removed right ovary and ovarian cyst, we rechecked inside, no active bleeding, no leak. Then we removed all trocars under direct vision. No active bleeding. Then the pneumoperitoneum released. I used #1 Vicryl, closed fascial layer by using [id number] x2, closed skin by using 4-0 Vicryl and other two 5 mm trocar sites closed only by using 4-0 Vicryl. Then we put the dressing on. The patient tolerated the procedure well. All the instrument, needle and sponge counts were correct x2 at the end of case and the specimen was sent to pathology. The patient was transferred to recovery room in stable condition. After the procedure, I did talk to patient and her about the OR finding and procedure we did. They understand and I answered all questions. I attest to the content of the Intraoperative Record and any orders documented therein. Any exceptions are noted below. TANISHA
[2016-11-02] MEDS: D5W AND 1/2NSS + 20MEQ KCL 1,000 ML IV SCH (01:18)
[2016-11-02] MEDS: KETOROLAC TROMETHAMINE 15 MG/ML VIAL IV. PRN ×2 (02:24→08:58)
[2016-11-02 03:33] VITALS: BP 95/58; PULSE 69; TEMP 36.8; O2SAT 92
[2016-11-02] MEDS: PIPERACILL/TAZOBAC IV 3.375 GM in DEXTROSE 5% 100ML 100 ML IV SCH (05:35)
[2016-11-02 06:17] LABS: COMPLETE YES; HEMATOCRIT 32.9 % (37-47); IG% 0.1 %; LYMPH % 14.4 %; LYMPH ABS # 1.09 K/uL (1.2-3.4); MEAN CELL VOLUME 92.7 fL (80-100); MEAN CORPUSCULAR HEMOGLOBIN 31.5 pg (25-34); MEAN PLATELET VOLUME 10.6 fL (7.4-10.4); MONO % 9.6 %; NEUT % 75.9 %; PLATELET COUNT 190 K/uL (130-400); RED BLOOD COUNT 3.55 M/uL (4.2-5.4); WHITE BLOOD COUNT 7.59 K/uL (4.8-10.8)
[2016-11-02 07:28] VITALS: BP 97/61; PULSE 66; TEMP 37.3; O2SAT 97
[2016-11-02] MEDS: HYDROmorphone INJ 1 MG/ML SYR IV PRN (07:33)
[2016-11-02] MEDS ORDERED: NURSING VERBAL MED ORDER ONE (08:30)
[2016-11-02] MEDS ORDERED: PANTOprazole SOD 40 MG TAB PO SCH (09:00)
[2016-11-02 09:04] VITALS: BP 97/61; PULSE 66; TEMP 37.3; O2SAT 97
--- NOTE | 2016-11-02 09:05 | Surgery Progress Note ---
Surgery Progress Note Date of Service Nov 02, 2016. Subjective Post OP Day: 1 + feeling well F/U S/P laparoscopic appendectomy, resection right ovary and cyst pt is doing fine, no nausea, no vomiting, good control the pain, she tolerated diet. pt wants to go home, Objective Vital Signs: Date Time Temp Pulse Resp B/P Pulse Ox O2 Delivery O2 Flow Rate FiO2 11/02/16 07:30 Room Air 11/02/16 07:28 37.3 66 18 97/61 97 Room Air 11/02/16 03:33 36.8 69 18 95/58 92 Room Air 11/01/16 23:15 Room Air 11/01/16 23:02 36.9 67 16 94/61 95 Room Air 11/01/16 18:30 36.7 68 16 95/54 97 Room Air 11/01/16 17:19 36.9 58 16 91/58 95 Room Air 11/01/16 16:19 37.1 57 16 103/66 95 Room Air 11/01/16 15:49 36.8 16 97/60 97 Room Air 11/01/16 15:15 98 Room Air 11/01/16 15:15 36.8 61 16 109/68 98 Room Air 11/01/16 15:15 Room Air 11/01/16 15:00 37.5 50 18 122/68 94 Room Air 11/01/16 14:50 37.5 56 18 124/71 99 Room Air 11/01/16 14:40 37.5 54 18 127/76 96 Room Air 11/01/16 14:30 48 18 142/80 97 Room Air 11/01/16 14:20 60 18 149/81 96 Room Air 11/01/16 14:10 78 18 138/79 100 Room Air 11/01/16 14:00 46 14 133/77 100 Mask 10 11/01/16 13:50 48 14 144/83 100 Mask 10 11/01/16 13:43 36.9 52 14 112/77 100 Mask 10 General Appearance: WD/WN Head: normocephalic Neck: supple Respiratory/Chest: chest non-tender, lungs clear Cardiovascular: regular rate, rhythm, no edema, no gallop, no JVD Abdomen: normal bowel sounds, non distended, soft, + tenderness Incision(s): clean, dry, intact Extremities: normal range of motion, non-tender, normal inspection Laboratory Results: Results Past 24 Hours Test 11/02/16 05:35 Range/Units White Blood Count 7.59 4.8-10.8 K/uL Red Blood Count 3.55 4.2-5.4 M/uL Hemoglobin 11.2 12.0-16.0 g/dL Hematocrit 32.9 37-47 % Mean Corpuscular Volume 92.7 80-100 fL Mean Corpuscular Hemoglobin 31.5 25-34 pg Mean Corpuscular Hemoglobin Concent 34.0 32-36 g/dl Platelet Count 190 130-400 K/uL Mean Platelet Volume 10.6 7.4-10.4 fL Neutrophils (%) (Auto) 75.9 % Lymphocytes (%) (Auto) 14.4 % Monocytes (%) (Auto) 9.6 % Eosinophils (%) (Auto) 0.0 % Basophils (%) (Auto) 0.0 % Neutrophils # (Auto) 5.76 1.4-6.5 K/uL Lymphocytes # (Auto) 1.09 1.2-3.4 K/uL Monocytes # (Auto) 0.73 0.11-0.59 K/uL Eosinophils # (Auto) 0.00 0-0.5 K/uL Basophils # (Auto) 0.00 0-0.2 K/uL RDW Standard Deviation 43.7 36.4-46.3 fL RDW Coefficient of Variation 12.8 11.5-14.5 % Immature Granulocyte % (Auto) 0.1 % Immature Granulocyte # (Auto) 0.01 0.00-0.02 K/uL Assessment & Plan IMP S/P lap appy and resection right ovary and cyst. D/C home today, I gave pt post-op care instruction, F/U 1 week, regular diet IMP RLQ pain, possible early appendicitis or ovary cyst, pt wants to do appendectomy, pt will have laparoscopic appendectomy possible open or remove right ovary cyst or ovary soon, D/W benefits, risks and alternatives of procedre, nataly risks- infection, bleeding, injury bowel, abscess , incisional hernia, , pt understood, she agrees with the plan, I also call accounting manager assistant controller OBG-YN doctor Cameron Garcia who will do intra-operative consult, he will decide to remove right ovary cyst or ovary, I informed pt about this plan, pt agrees with the plan.
[2016-11-02] MEDS ORDERED: HYDR-3419 PO (09:08)
--- NOTE | 2016-11-02 09:10 | Discharge Instructions ---
Discharge Instructions Admission Reason for Admission: Abdominal Pain Discharge Discharge Diagnosis / Problem: S/P laparoscopic appendectomy, resection of right ovary and cyst Discharge Goals Goal(s): Decrease discomfort, Improve function Activity Recommendations Activity Limitations: per Instructions/Follow-up section Lifting Limitations: no more than 25 pounds Exercise/Sports Limitations: gradually increase as tolerated May Resume Sexual Activity: when tolerated Shower/Bathe: may shower/bathe in 3 days Driving or Machine Use: resume 3 days after discharge . Instructions / Follow-Up Instructions / Follow-Up keep nataly dressing on for 4 days, she can take a shower on 11/05/2016, no driving while taking pain, medicine. Follow up 1 week, Current Hospital Diet Patient's current hospital diet: Full Liquid Diet Discharge Diet Recommended Diet: Regular Diet Procedures Procedures Performed: Laparoscopic appendectomy, right ovary cyst resection and oophrectomy Pending Studies Studies pending at discharge: no Medical Emergencies . Who to Call and When: Medical Emergencies: If at any time you feel your situation is an emergency, please call 911 immediately. . Non-Emergent Contact Non-Emergency issues call your: Primary Care Provider Call Non-Emergent contact if: you have a fever, temperature is above 100.5, your pain is not controlled, your pain is worsening, wound has increased drainage, wound has increased redness . "Provider Documentation" section prepared by Ambreen Maldonado. VTE Core Measure Inpt VTE Proph given/why not?: SCD's
--- NOTE | 2016-11-02 23:48 | DISCHARGE SUMMARY ---
ADMITTING DIAGNOSES: Acute abdominal pain, possible right ovarian cyst and acute appendicitis. POSTOPERATIVE DIAGNOSIS: Rupture of right ovarian cyst. OPERATION: Laparoscopic appendectomy, resection of right ovary and cyst. SURGEON: Dr. Ambreen Maldonado. PHONOGRAPH NEEDLE TIP MAKER: Dr. Cameron Garcia, and Dr. Garcia did laparoscopic right ovarian and cyst resection. ANESTHESIA: General. ESTIMATED BLOOD LOSS: About 10 mL. IV FLUIDS: 800 mL. URINE OUTPUT: 400 mL. FINDINGS: Ruptured right ovarian cyst, normal appendix. COMPLICATIONS: None. INDICATION OF THE PROCEDURE: This is a 46-year-old female who presented to the ED with 1-day history of right lower quadrant pain. The patient had a CT scan showing right ovarian cyst about 6 cm and possible early acute appendicitis, and I saw the patient in the ED, and we decided to admit the patient to the hospital overnight. The next day, on 11/01/2016, the patient still had right lower quadrant pain and the patient required to do laparoscopic appendectomy, resection of right ovarian cyst and right ovary. Based on the patient gives a history of the patient's sister had ruptured appendix, even if she has a normal appendix, still wants to remove appendix. I did talk to the patient about the benefits, risks and alternate procedure. The patient understands. We took the patient to the OR. We did appendectomy through laparoscopy. Also in the OR, we found the patient had ruptured and bleeding right ovarian cyst. We removed the right ovary and the cyst, by Dr. Caemron Garcia. The patient tolerated the procedure well. After the procedure, the patient transferred to the recovery room and later on transferred to the surgical floor, and the patient doing fine with controlled pain, no nausea, no vomiting. She tolerated the diet. PHYSICAL EXAMINATION: VITAL SIGNS: Temperature is 37.3, heart rate 66, respiratory rate 18, blood pressure is 97/61, O2 saturation 97% on room air. GENERAL: The patient is alert, awake, oriented x3. HEENT: With normal limitation. NEUROLOGIC: Intact. NECK: No JVD. CHEST: Bilateral lung sounds clear. HEART: Normal S1, S2. No murmur. ABDOMEN: Soft, slight tenderness on the incision site. All incisions are dry. No drainage. EXTREMITIES: No edema. PLAN: The patient wants to go home. Gave the patient the postoperative care instruction. We will follow up the patient in 1 week. The patient understands.
[2017-06-01] MEDS ORDERED: BUPR-79 PO (11:17)
== END 2016-11-02 10:45 | disposition home or self-care (01) ==
LOC: ENRESERVTM → ENRESERVDT → C.EDB 09:59 → C.MSW 16:24
PROVIDERS: ADMIT Surgery; ATTEND Surgery
DX: N83.201 Unspecified ovarian cyst, right side (principal); R10.9 Unspecified abdominal pain; K21.9 Gastro-esophageal reflux disease without esophagitis; M43.06 Spondylolysis, lumbar region; Z87.891 Personal history of nicotine dependence; Z90.710 Acquired absence of both cervix and uterus

== ENCOUNTER → 2016-12-07 | Outpatient (CLI) | payer BC ==
[~2016-12-07] MED LIST changes: +BUPR-79 PO
== END | disposition home or self-care (01) ==
LOC: C.LAB1850 10:56
PROVIDERS: ATTEND Obstetrics & Gynecology
DX: N95.1 Menopausal and female climacteric states (principal)

== ENCOUNTER → 2017-06-01 | Outpatient (CLI) | payer BC ==
--- NOTE | 2017-06-01 13:17 | DIAGNOSTIC IMAGING REPORT ---
CERVICAL SPINE 2 OR 3 VIEWS CLINICAL HISTORY: Neck pain. Cervical radiculopathy. COMPARISON STUDY: No previous studies for comparison. FINDINGS: The prevertebral soft tissues are normal. No fractures or traumatic subluxations are visualized. There is a slight reversal of the normal cervical lordosis. There are moderate degenerative changes the C4-5, C5-6, and C6-7 levels. There is uncovertebral joint spurring with minimal foraminal encroachment at the C4-5 level on the left. IMPRESSION: 1. Moderate degenerative changes at the C4-5 through C6-7 levels. Electronically signed by: Stevie Castro M.D. 06/01/2017 1:16 PM Dictated Date/Time: 06/01/2017 1:14 PM
== END | disposition home or self-care (01) ==
LOC: C.RADBC 12:40
PROVIDERS: ATTEND Physician Assistant Medical
DX: M54.12 Radiculopathy, cervical region (principal)

== ENCOUNTER → 2017-06-24 | Outpatient (CLI) | payer BC ==
--- NOTE | 2017-06-24 17:10 | DIAGNOSTIC IMAGING REPORT ---
CERVICAL SPINE MRI HISTORY: Neck pain radiating to left elbow. CERVICALGIA TECHNIQUE: Multiplanar multisequence MRI of the cervical spine was performed without the use of contrast. COMPARISON STUDY: Cervical spine 06/01/2017. FINDINGS: Slight reversal of the normal lordotic curvature. Alignment remains intact. No fractures identified. Prevertebral soft tissues and the C1-C2 interval are intact. The visualized posterior fossa is unremarkable. Cervical spinal cord demonstrates a normal signal intensity. Mild to moderate disc space narrowing at C4-C5, C5-C6, and C6-C7 with associated small endplate osteophytes. C2-C3: No significant central canal or neural foraminal narrowing. C3-C4: Tiny disc bulge and focal central annular tear. No significant central canal or neural foraminal narrowing. C4-C5: Small broad-based posterior disc osteophyte complex which abuts and slightly deforms the left anterior cord. There is also mild to moderate left neural foraminal narrowing. This is due to the disc bulge which abuts and slightly displaces the exiting nerve at this level. C5-C6: Tiny broad-based posterior disc osteophyte complex with a tiny focal central disc protrusion demonstrating inferior subligamentous migration. This results in partial effacement of the anterior thecal sac without cord deformity. There is also mild left neural foraminal narrowing. C6-C7: Small broad-based posterior disc osteophyte, which with a tiny focal central disc protrusion. This abuts but does not deform the anterior cord. This results in mild left neural foraminal narrowing. C7-T1: No significant central canal or neural foraminal narrowing. IMPRESSION: 1. Mild to moderate degenerative disc disease from the C4-C5 through C6-C7 as described above. This is most pronounced at the C4-C5 level with there is mild left anterior cord deformity due to the disc osteophyte complex. 2. Mild left-sided neural foraminal narrowing at C4-C5 and C5-C6. Electronically signed by: Marcelo Larry M.D. 06/24/2017 5:09 PM Dictated Date/Time: 06/24/2017 4:53 PM
== END | disposition home or self-care (01) ==
LOC: C.MRIBC 15:56
PROVIDERS: ATTEND Physician Assistant Medical
DX: M54.2 Cervicalgia (principal)

== ENCOUNTER → 2017-12-06 | Outpatient (CLI) | payer BC ==
[~2017-12-06] MED LIST changes: -ATV5 PO; +BUSP15TA70 PO; +PRM625 PO; +TRAZ50TA35 PO
--- NOTE | 2017-12-08 08:03 | MAMMOGRAPHY REPORT ---
BILATERAL DIGITAL SCREENING MAMMOGRAM TOMOSYNTHESIS WITH CAD: 12/06/2017 CLINICAL HISTORY: Routine screening. Patient has no complaints. TECHNIQUE: Breast tomosynthesis in addition to standard 2D mammography was performed. Current study was also evaluated with a Computer Aided Detection (CAD) system. COMPARISON: Comparison is made to exams dated: 10/23/2016 mammogram, 10/08/2015 mammogram, 09/26/2014 mammogram, 07/19/2013 mammogram, 05/03/2012 mammogram, and 04/10/2011 mammogram - [facility]. BREAST COMPOSITION: The tissue of both breasts is extremely dense, which lowers the sensitivity of m ammography. FINDINGS: There is a stable ribbon-shaped biopsy marker clip in the medial left breast. No developin g mass, architectural distortion or cluster of suspicious microcalcifications is seen in either breas t. IMPRESSION: ACR BI-RADS CATEGORY 2: BENIGN There is no mammographic evidence of malignancy. A 1 year screening mammogram is recommended. The pa tient will receive written notification of the results. Approximately 10% of breast cancers are not detected with mammography. A negative mammographic report should not delay biopsy if a clinically suggestive mass is present. Grace Albert M.D. ay/:12/07/2017 17:48:04 [place]: Amanda CURRY)(M), [facility] letter sent: Normal 1/2 BI-RADS Code: ACR BI-RADS Category 2: Benign
== END | disposition home or self-care (01) ==
LOC: C.MAMM 15:01
PROVIDERS: ATTEND Obstetrics & Gynecology
DX: Z12.31 Encounter for screening mammogram for malignant neoplasm of breast (principal)

== ENCOUNTER → 2018-01-19 | Outpatient (CLI) | payer BC | END | disposition home or self-care (01) | LOC: C.PAPS 16:58 | PROVIDERS: ATTEND Obstetrics & Gynecology | DX: Z01.419 Encounter for gynecological examination (general) (routine) without abnormal findings (principal) ==

== ENCOUNTER → 2018-02-18 | Outpatient (CLI) | payer BC, OTHER ==
--- NOTE | 2018-02-18 15:59 | DIAGNOSTIC IMAGING REPORT ---
L FOOT MIN 3 VIEWS CLINICAL HISTORY: 47 years-old Female presenting with LEFT FOOT PAIN. TECHNIQUE: Frontal, oblique, and lateral views of the left foot were obtained. COMPARISON: None. FINDINGS: Normal appearance of the longitudinal arch. Accessory navicular noted. No acute fracture or malalignment. No advanced degenerative change. No radiographic soft tissue abnormality. IMPRESSION: No acute osseous injury. Electronically signed by: Lorenzo Becker M.D. 02/18/2018 3:58 PM Dictated Date/Time: 02/18/2018 3:57 PM
== END | disposition home or self-care (01) ==
LOC: C.RDSM 15:30
PROVIDERS: ATTEND Family Medicine
DX: M79.672 Pain in left foot (principal)